=== PATIENT | female | born 1940 | race Caucasian/White ===

== ENCOUNTER → 2024-02-23 08:39 | Outpatient (REF) | payer OTHER, SELFPAY ==
[2024-02-23 09:19] LABS: % Basophils 0.4 % (0-2); % Eosinophils 3.8 % (0-6); % Immature Granulocytes 0.5 % (0-0.5); % Monocytes 12.8 % (1.7-9.3); % Neutrophils 75.5 % (42.2-75.2); Absolute Eosinophils 0.3 10^3/uL (0-0.7); Absolute Lymphocytes 0.5 10^3/uL (1.2-3.4); Absolute Neutrophils 5.6 10^3/uL (1.4-6.5); Hematocrit 43.8 % (37.0-47.0); Hemoglobin 14.9 g/dL (12.0-16.0); Mean Corpuscular Hgb 32.3 pg (27.0-31.0); Mean Corpuscular Volume 94.8 fL (81.0-99.0); Mean Platelet Volume 9.5 fL (7.4-10.4); Nucleated Red Blood Cells % 0 %; Platelet Count 280 10^3/uL (130-400); Red Blood Cell Count 4.62 10^6/uL (4.20-5.40); Red Cell Dist. Width 12.7 % (11.5-14.5); White Blood Cell Count 7.4 10^3/uL (4.8-10.8)
[2024-02-23 09:40] LABS: ALT (SGPT) 22 U/L (0-35); AST (SGOT) 28 U/L (14-36); Albumin 4.6 g/dl (3.5-5.0); Alkaline Phosphatase 64 U/L (38-126); Blood Urea Nitrogen 12 mg/dl (7-17); Calcium 9.7 mg/dl (8.4-10.2); Carbon Dioxide 27 mmol/L (22-30); Chloride 100 mmol/L (98-107); Glucose 106 mg/dl (70-99); HDL Cholesterol 92 mg/dl; LDL Cholesterol, Calculated 78 mg/dl; Potassium 4.8 mmol/L (3.5-5.1); Sodium 139 mmol/L (135-145); Total Bilirubin 0.7 mg/dl (0.2-1.3); Total Cholesterol 185 mg/dl (50-199); Total Protein 7.6 g/dl (6.3-8.2); Triglyceride 76 mg/dl (10-149); Very Low Density Lipoprotein 15 mg/dl (0-30); eGFR > 60.00
[2024-02-23 10:00] LABS: Vitamin D, 25-OH*** 48.5 ng/mL (30-80)
[2024-02-23 10:12] LABS: TSH Reflex To Free T4 3.35 uIU/ml (0.47-4.68)
[2024-02-23 10:42] LABS: Glycohemoglobin (HgbA1c) 5.4 % (4.0-5.6)
== END ==
LOC: REG 08:39
PROVIDERS: ATTENDING PHYSICIAN Family Medicine
DX: R73.01 Impaired fasting glucose (principal); E78.00 Pure hypercholesterolemia, unspecified; D47.2 Monoclonal gammopathy; E55.9 Vitamin D deficiency, unspecified; Z13.9 Encounter for screening, unspecified
CPT/HCPCS: 36415; 80053; 80061; 82306; 82784; 83036; 83521; 84155; 84165; 84443; 85025; 86334

== ENCOUNTER → 2024-09-06 06:57 | Outpatient (REF) | payer OTHER, SELFPAY ==
[2024-09-06 07:58] LABS: % Basophils 0.8 % (0-2); % Eosinophils 4.2 % (0-6); % Immature Granulocytes 0.5 % (0-0.5); % Lymphocytes 11.2 % (20.5-51.1); % Monocytes 13.4 % (1.7-9.3); % Neutrophils 69.9 % (42.2-75.2); Absolute Basophils 0.1 10^3/uL (0-0.2); Absolute Eosinophils 0.3 10^3/uL (0-0.7); Absolute Lymphocytes 0.7 10^3/uL (1.2-3.4); Absolute Monocytes 0.8 10^3/uL (0.1-0.6); Absolute Neutrophils 4.1 10^3/uL (1.4-6.5); Hematocrit 45.5 % (37.0-47.0); Hemoglobin 15.3 g/dL (12.0-16.0); Mean Corp Hgb Conc. 33.6 g/dL (33.0-37.0); Mean Corpuscular Hgb 32.6 pg (27.0-31.0); Mean Corpuscular Volume 96.8 fL (81.0-99.0); Mean Platelet Volume 9.9 fL (7.4-10.4); Nucleated Red Blood Cells % 0 %; Platelet Count 287 10^3/uL (130-400); Red Cell Dist. Width 12.9 % (11.5-14.5); White Blood Cell Count 5.9 10^3/uL (4.8-10.8)
[2024-09-06 08:16] LABS: ALT (SGPT) 23 U/L (0-35); AST (SGOT) 27 U/L (14-36); Albumin 4.9 g/dl (3.5-5.0); Alkaline Phosphatase 65 U/L (38-126); Blood Urea Nitrogen 15 mg/dl (7-17); Calcium 9.6 mg/dl (8.4-10.2); Carbon Dioxide 30 mmol/L (22-30); Chloride 98 mmol/L (98-107); Glucose 108 mg/dl (70-99); HDL Cholesterol 100 mg/dl; LDL Cholesterol, Calculated 75 mg/dl; Potassium 4.8 mmol/L (3.5-5.1); Sodium 136 mmol/L (135-145); Total Bilirubin 0.8 mg/dl (0.2-1.3); Total Cholesterol 191 mg/dl (50-199); Total Protein 8.1 g/dl (6.3-8.2); Triglyceride 83 mg/dl (10-149); Very Low Density Lipoprotein 16 mg/dl (0-30); eGFR > 60.00
[2024-09-06 10:25] LABS: Glycohemoglobin (HgbA1c) 5.3 % (4.0-5.6)
== END ==
LOC: REG 06:57
PROVIDERS: ATTENDING PHYSICIAN Family Medicine
DX: R73.01 Impaired fasting glucose (principal); E78.00 Pure hypercholesterolemia, unspecified; D47.2 Monoclonal gammopathy
CPT/HCPCS: 36415; 80053; 80061; 83036; 85025

== ENCOUNTER 2025-01-15 11:51 | Emergency (ER) | payer OTHER, SELFPAY ==
[2025-01-15 11:53] VITALS: BP 134/80
--- NOTE | 2025-01-15 12:52 | ED.GENMED ---
History of Present Illness
General
Chief Complaint: Back Pain
Time Seen by Provider: 01/15/25 12:16
History of Present Illness
History of Present Illness:
84-year-old female with history of spinal stenosis presenting to the emergency department for persistent left-sided back pain. Patient notes pain stemming from the left side of the back and radiating down her left thigh. Reports that she has been
following with orthopedics for her pain, scheduled for an MRI at the end of the month. He has been taking Celebrex with some mild improvement of pain. Her doctor also prescribed her hydrocodone, which also somewhat helps with the pain. Denies
weakness or numbness to her extremities. Denies any known acute injuries. Denies any bowel or bladder issues. Denies fever. Denies additional acute medical complaint
Past History
Past History
ED Past Medical History: Other (Irritable bowel)
ED Past Surgical History: Appendectomy, Cholecystectomy, Gynecological and Orthopedic
Social History
Tobacco: Non-smoker
Alcohol: None
Drug: None
Personal:
Living: with family
Employment: Retired
Family History
Family History: Unable to obtain
Phy Exam
Physical Exam
Physical Exam:
General: Well-appearing, no clinical signs of dehydration, nontoxic and in no acute distress
HEENT: protecting airway
Neck: appears supple
CV: Normal heart rate
Resp: No accessory muscle use, no increased work of breathing
Abd: no distension
Extremities: No deformities, no swelling, no erythema, pulses and sensation intact. Range of motion to the left lower extremity is intact. Generalized discomfort to the lateral aspect of the left thigh
Neuro: alert, no focal neurologic deficit
: deferred
Rectal: deferred
Psych: Normal affect
Skin: Intact
Course
Orders/Labs/Results
Orders:
Orders
01/15/25 12:44
Prednisone [Deltasone] 50 mg PO NOW STA
Vital Signs
Initial and Last Documented VS:
Initial Vital Signs
Temp Pulse Resp BP Pulse Ox
98.2 F 74 16 134/80 98
01/15/25 11:53 01/15/25 11:53 01/15/25 11:53 01/15/25 11:53 01/15/25 11:53
Last Documented Vital Signs
Temp Pulse Resp BP Pulse Ox
98.2 F 74 16 134/80 98
01/15/25 11:53 01/15/25 11:53 01/15/25 11:53 01/15/25 11:53 01/15/25 11:53
MDM/Problems Addressed
MDM/Problems Addressed:
84-year-old female with history of spinal stenosis presenting to the emergency department for left-sided back pain. Vital signs on arrival are normal.
On exam, patient is resting comfortably, no acute distress or discomfort. Overall reassuring examination. Symptoms appear most consistent with musculoskeletal etiology, suspected sciatica given distribution of pain. Do not suspect any concerning
etiology to patient's presenting symptoms. Do not suspect any spinal fracture in the absence of any direct trauma, and no midline spinal tenderness. No fever, systemic symptoms, or midline tenderness, without concern for spinal abscess or
infection. No red flag such as bowel or bladder incontinence, focal weakness, or any sensory deficits on exam, without present concern for spinal compression. Patient expresses frustration over getting her MRI. Explained that there is no current
emergent indication for MRI and a consult with her doctor for an earlier, however in the meantime regarding her pain, is already on a pain regiment. Will add an oral steroid, no history of diabetes. Overall feels stable for discharge with
continued outpatient supportive therapy. Also discussed possibility of physical therapy, and she discussed this option with her physician. Return precautions discussed and patient and verbalized understanding
*Pulse Oximetry
SaO2: 98
Oxygen Mode of Delivery: Room air
Patient hypoxic: no
*Critical Care Note
Total Time (30-74mins, 75-104mins- exclusive of procedures): Not Applicable
ED Attending Note
-
Portions of this chart may have been created with voice recognition software.� Occasional wrong word or��sound alike� substitutions may have occurred due to the inherent limitations of voice recognition software.
Discharge Plan
Departure
Prescriptions:
No Action
atorvastatin 10 MG tablet
10 mg PO DAILY
guar gum 1 PKT packet
1 packet PO BID
amitriptyline 10 MG tablet
10 mg PO DAILY
fluoxetine 20 MG capsule
20 mg PO DAILY
Vitamin D
2,000 units PO DAILY
sennosides [senna] 1 TABLET tablet
2 tab PO BID Qty: 0 0RF
aspirin 325 MG tablet,delayed release (DR/EC)
325 mg PO DAILY Qty: 0 0RF
docusate sodium 100 MG capsule
100 mg PO BID Qty: 0 0RF
oxycodone 5 MG tablet
1 - 2 tab PO [id number] PRN (Reason: pain) Qty: 90 0RF
tramadol 50 MG tablet
50 mg PO [id number] PRN (Reason: pain) Qty: 60 0RF
Referrals:
Khoa Gregory Jr., DO [Family Provider, Internal Medicine]
Interventions
Interventions:
*Risk Screen - Suicide Last Done: 01/15/25 11:53
*General Assessment Last Done: 01/15/25 12:16
*Neglect/Abuse Screening Last Done: 01/15/25 11:53
ED-Musculoskeletal Assessment Last Done: 01/15/25 12:16
Discharge Date and Time
Print Language: ARMENIAN
[2025-01-15] MEDS: DELTASONE 50 MG PO (12:56)
== END 2025-01-15 13:23 | disposition home or self-care (01) ==
LOC: EMR 11:51
PROVIDERS: EMERGENCY PHYSICIAN Student in an Organized Health Care Education/Training Program; FAMILY PHYSICIAN Family Medicine
DX: M54.50 Low back pain, unspecified (principal); M54.32 Sciatica, left side; M48.00 Spinal stenosis, site unspecified; K58.9 Irritable bowel syndrome, unspecified
CPT/HCPCS: 99283

== ENCOUNTER → 2025-01-24 08:39 | Outpatient (REF) | payer OTHER, SELFPAY | LOC: MRI 08:39 | PROVIDERS: ATTENDING PHYSICIAN Physical Medicine & Rehabilitation; FAMILY PHYSICIAN Family Medicine | DX: M54.16 Radiculopathy, lumbar region (principal) | CPT/HCPCS: 72148 ==

== ENCOUNTER → 2025-02-22 08:06 | Outpatient (REF) | payer OTHER, SELFPAY ==
[2025-02-22 08:54] LABS: Hematocrit 41.6 % (37.0-47.0); Hemoglobin 14.1 g/dL (12.0-16.0); Mean Corp Hgb Conc. 33.9 g/dL (33.0-37.0); Mean Corpuscular Volume 96.5 fL (81.0-99.0); Nucleated Red Blood Cells % 0 %; Platelet Count 342 10^3/uL (130-400); Red Cell Dist. Width 13.4 % (11.5-14.5)
[2025-02-22 09:24] LABS: ALT (SGPT) 17 U/L (0-35); AST (SGOT) 19 U/L (14-36); Albumin 4.2 g/dl (3.5-5.0); Alkaline Phosphatase 48 U/L (38-126); Blood Urea Nitrogen 17 mg/dl (7-17); Calcium 9.4 mg/dl (8.4-10.2); Carbon Dioxide 30 mmol/L (22-30); Chloride 98 mmol/L (98-107); Glucose 88 mg/dl (70-99); Potassium 4.3 mmol/L (3.5-5.1); Sodium 134 mmol/L (135-145); Total Protein 7.2 g/dl (6.3-8.2); Very Low Density Lipoprotein 8 mg/dl (0-30); eGFR > 60.00
[2025-02-22 09:27] LABS: Glycohemoglobin (HgbA1c) 5.3 % (4.0-5.6)
[2025-02-22 09:34] LABS: HDL Cholesterol 111 mg/dl; LDL Cholesterol, Calculated 60 mg/dl
[2025-02-22 09:39] LABS: Vitamin D, 25-OH*** 29.2 ng/mL (30-80)
== END ==
LOC: REG 08:06
PROVIDERS: ATTENDING PHYSICIAN Family Medicine
DX: R73.01 Impaired fasting glucose (principal); E78.00 Pure hypercholesterolemia, unspecified; D47.2 Monoclonal gammopathy; E55.9 Vitamin D deficiency, unspecified; Z13.29 Encounter for screening for other suspected endocrine disorder
CPT/HCPCS: 36415; 80053; 80061; 82306; 82784; 83036; 83521; 84155; 84165; 84443; 85025; 86334